=== PATIENT | female | born 1935 | race Two or more races ===

== ENCOUNTER → 2019-04-08 | Emergency (ER) | payer OTHER ==
[~2019-04-08] MED LIST: SODIUM BICARBONATE 8.4% INJ 50ML SYRINGE ONE
== END | disposition left against medical advice (07) ==
LOC: EDBD 11:51 → ER 11:51
DX: R07.89 Other chest pain (principal); R06.02 Shortness of breath; Z53.21 Procedure and treatment not carried out due to patient leaving prior to being seen by health care provider

== ENCOUNTER 2020-01-14 15:22 | Inpatient (IN) | payer MEDICARE, MEDICAID ==
[~2020-01-14] VITALS: Ht 165.1 cm; Wt 86.5 kg
[2020-01-14] MEDS: InsuLIN REG 1unit/0.01ml Soln (100units/ml) SC SCH (00:48)
[2020-01-14 16:56] LABS: Basophils # (auto) 0.1 10 ^3/uL (0-0.2); Basophils % (auto) 1.7 % (0.0-2.0); Eosinophils # (auto) 0.1 10 ^3/uL (0-0.8); Eosinophils % (auto) 2.9 % (0.0-7.0); Hematocrit 34.9 % (36.0-46.0); Hemoglobin 11.3 g/dL (12.2-16.2); Lymphocytes # (auto) 0.7 10 ^3/uL (0.4-5.4); Lymphocytes % (auto) 14.7 % (10.0-50.0); Mean Corpuscular Hemoglobin 27.8 pg (28.0-32.0); Mean Corpuscular Hgb Conc. 32.3 g/dL (32.0-36.0); Mean Corpuscular Volume 86.2 fL (80.0-100.0); Monocytes # (auto) 0.5 10 ^3/uL (0-1.3); Neutrophils # (auto) 3.2 10 ^3/uL (1.6-8.6); Neutrophils % (auto) 70.7 % (37.0-80.0); Nucleated Red Blood Cells % 0.2 %; Platelet Count (auto) 213 10^3/uL (140-450); Red Blood Cells 4.05 10^6/uL (4.0-5.20); Red Cell Distribution Width 15.2 % (11.8-14.3); White Blood Cell 4.6 10^3/uL (4.4-10.8)
[2020-01-14 17:12] LABS: Calcium 8.5 mg/dL (8.5-10.1); Magnesium 2.2 mg/dL (1.6-2.6); Potassium 4.8 mmol/L (3.5-5.1)
[2020-01-14] MEDS ORDERED: FUROSEMIDE 40 MG/4 ML VIAL IV ONE ×2 (17:15→19:15)
[2020-01-14 17:18] LABS: BUN/Creatinine Ratio 22.5; Bilirubin, Total 0.9 mg/dL (0.2-1.0); Total Protein 7.1 g/dL (6.4-8.2)
[2020-01-14] MEDS ORDERED: HYDROcodone-ACET 5/325MG TAB PO PRN (19:15)
[2020-01-14] MEDS ORDERED: INFLUENZA QUAD 2020-2021 0.5 ML SYRG IM ONE (19:15)
[2020-01-14] MEDS ORDERED: LORazepam 0.5 MG TAB PO PRN (19:15)
[2020-01-14] MEDS ORDERED: ONDANSETRON HCL 4 MG/2 ML VIAL IV PRN (19:15)
[2020-01-14] MEDS: SODIUM CHLORIDE 0.9% 1,000 ML IV SCH (19:15)
[2020-01-14] MEDS ORDERED: MORPHINE SULF INJ 2 MG/ML SYRINGE 1ML IV PRN ×3 (19:15)
[2020-01-14] MEDS ORDERED: NITROGLYCERIN 0.4 MG SL TAB SL PRN ×3 (19:15)
[2020-01-14] MEDS ORDERED: DEXTROSE (50%) 50ML SYRG IV PRN (19:15)
[2020-01-14] MEDS ORDERED: PNEUMOCOCCAL VACC POLYS 25 MCG/0.5 ML VIAL IM ONE (19:15)
[2020-01-14] MEDS ORDERED: hydrALAZINE HCL 20 MG/ML VL IV PRN (19:30)
[2020-01-14] MEDS ORDERED: METOPROLOL SUCCINATE XL 50 MG TAB PO ONE (19:30)
[2020-01-14] MEDS: METOPROLOL TARTRATE 25 MG TAB PO SCH (22:00)
[2020-01-15] VITALS (7 sets, daily range): BP systolic 115–144; BP diastolic 56–83
[2020-01-15] MEDS: ATORVASTATIN 20 MG TAB PO SCH ×2 (00:35→22:00)
[2020-01-15] MEDS ORDERED: AZITHROMYCIN 500MG/ 250ML 250 ML IV ONE (01:45)
[2020-01-15] MEDS ORDERED: cefTRIAXone 1GM/50ML D5W 50 ML IV ONE (01:45)
[2020-01-15] MEDS: ACCU-CHEK COMFORT CURVE STRIP VI SCH ×5 (02:16→22:00)
[2020-01-15] MEDS: ACETAMINOPHEN 325 MG TAB PO PRN ×2 (02:40→19:48)
[2020-01-15] MEDS: FUROSEMIDE 20 MG/2 ML VIAL IV SCH ×2 (06:44→18:06)
[2020-01-15] MEDS: LEVOTHYROXINE SODIUM 25 MCG TAB PO SCH (07:00)
[2020-01-15] MEDS: InsuLIN REG 1unit/0.01ml Soln (100units/ml) SC SCH ×4 (07:02→22:00)
[2020-01-15] MEDS: DOCUSATE SOD 100 MG CAP PO SCH (10:33)
[2020-01-15] MEDS: LISINOPRIL 5 MG TAB PO SCH (10:33)
[2020-01-15] MEDS: APIXABAN 2.5 MG TAB PO SCH ×2 (10:33→22:00)
[2020-01-15] MEDS: ASPirin 81 mg TAB PO SCH (10:35)
[2020-01-15] MEDS: FAMOTIDINE (10MG/ML) 2ML VL IV SCH ×2 (10:38→22:00)
[2020-01-15] MEDS: METOPROLOL TARTRATE 25 MG TAB PO SCH ×2 (10:47→22:00)
[2020-01-15 13:56] LABS: INR 1.15 (0.9-1.15); Partial Thromboplastin Time 29.8 sec (23.0-31.2)
[2020-01-15] MEDS: SODIUM CHLORIDE 0.9% 1,000 ML IV SCH (19:00)
[2020-01-15 20:04] LABS: Urine Bacteria FEW /hpf (None Seen); Urine Blood TRACE /uL (Negative); Urine Specific Gravity 1.013 (1.001-1.035); Urine WBC 4 /hpf (0 - 5)
[2020-01-15 20:29] LABS: Amphetamine Screen, Urine NEGATIVE (NEGATIVE); Barbiturate Scree,Urine NEGATIVE (NEGATIVE); Benzodiazephine Screen, Urine NEGATIVE (NEGATIVE); Cannabinoid Screen, Urine NEGATIVE (NEGATIVE); Cocaine Screen, Urine NEGATIVE (NEGATIVE); Opiate Scree,Urine NEGATIVE (NEGATIVE); Phencyclidine Screen, Urine NEGATIVE (NEGATIVE)
[2020-01-15 20:41] LABS: Alcohol, Urine < 3.0 mg/dL (0-10)
[2020-01-15] MEDS: QUEtiapine FUMARATE 25 MG TAB PO SCH (22:00)
[2020-01-15] MEDS ORDERED: LORazepam 2MG/ML-1ML VIAL IV PRN (22:45)
[2020-01-16] MEDS: LEVOTHYROXINE SODIUM 25 MCG TAB PO SCH (06:44)
[2020-01-16] MEDS: FUROSEMIDE 20 MG/2 ML VIAL IV SCH ×2 (06:52→17:51)
[2020-01-16] MEDS: ACCU-CHEK COMFORT CURVE STRIP VI SCH ×4 (06:57→22:13)
[2020-01-16] MEDS: InsuLIN REG 1unit/0.01ml Soln (100units/ml) SC SCH ×4 (06:57→22:12)
[2020-01-16 08:30] VITALS: BP 147/78
[2020-01-16] MEDS: cefTRIAXone 1GM/50ML D5W 50 ML IV SCH (08:32)
[2020-01-16 09:00] VITALS: BP 147/78
[2020-01-16] MEDS: DOCUSATE SOD 100 MG CAP PO SCH (09:48)
[2020-01-16] MEDS: LISINOPRIL 5 MG TAB PO SCH (09:48)
[2020-01-16] MEDS: ASPirin 81 mg TAB PO SCH (09:48)
[2020-01-16] MEDS: APIXABAN 2.5 MG TAB PO SCH (09:48)
[2020-01-16] MEDS: FAMOTIDINE (10MG/ML) 2ML VL IV SCH ×2 (09:49→21:28)
[2020-01-16] MEDS: METOPROLOL TARTRATE 25 MG TAB PO SCH ×3 (09:49→22:34)
[2020-01-16] MEDS: AZITHROMYCIN 500MG/ 250ML 250 ML IV SCH (09:49)
[2020-01-16 13:00] VITALS: BP 130/63
[2020-01-16 17:00] VITALS: BP 119/83
[2020-01-16] MEDS: SODIUM CHLORIDE 0.9% 1,000 ML IV SCH (19:15)
[2020-01-16] MEDS: ATORVASTATIN 20 MG TAB PO SCH (21:28)
[2020-01-16] MEDS: QUEtiapine FUMARATE 25 MG TAB PO SCH (21:30)
[2020-01-16 22:00] VITALS: BP 146/88
[2020-01-17] VITALS (7 sets, daily range): BP systolic 119–150; BP diastolic 63–79
[2020-01-17] MEDS: FUROSEMIDE 20 MG/2 ML VIAL IV SCH ×2 (05:42→17:29)
[2020-01-17] MEDS: InsuLIN REG 1unit/0.01ml Soln (100units/ml) SC SCH ×4 (06:01→22:00)
[2020-01-17] MEDS: LEVOTHYROXINE SODIUM 25 MCG TAB PO SCH (06:01)
[2020-01-17] MEDS: ACCU-CHEK COMFORT CURVE STRIP VI SCH ×4 (06:02→22:08)
[2020-01-17] MEDS: cefTRIAXone 1GM/50ML D5W 50 ML IV SCH (08:17)
[2020-01-17] MEDS: FAMOTIDINE (10MG/ML) 2ML VL IV SCH ×2 (10:17→21:16)
[2020-01-17] MEDS: AZITHROMYCIN 500MG/ 250ML 250 ML IV SCH (10:17)
[2020-01-17] MEDS: LISINOPRIL 5 MG TAB PO SCH (10:22)
[2020-01-17] MEDS: DOCUSATE SOD 100 MG CAP PO SCH (10:22)
[2020-01-17] MEDS: ASPirin 81 mg TAB PO SCH (10:22)
[2020-01-17] MEDS ORDERED: SPIRONOLACTONE 25 MG TAB PO ONE (11:45)
[2020-01-17] MEDS: ATORVASTATIN 20 MG TAB PO SCH (21:18)
[2020-01-17] MEDS: QUEtiapine FUMARATE 25 MG TAB PO SCH (21:19)
[2020-01-17] MEDS: METOPROLOL TARTRATE 25 MG TAB PO SCH (21:19)
[2020-01-17] MEDS ORDERED: HALOPERIDOL LACTATE 5 MG/ML INJ VIAL IM PRN (21:30)
[2020-01-18 04:36] VITALS: BP 108/57
[2020-01-18] MEDS: FUROSEMIDE 20 MG/2 ML VIAL IV SCH ×2 (05:35→18:23)
[2020-01-18] MEDS: LEVOTHYROXINE SODIUM 25 MCG TAB PO SCH (06:05)
[2020-01-18] MEDS: ACCU-CHEK COMFORT CURVE STRIP VI SCH ×4 (06:06→21:56)
[2020-01-18] MEDS: InsuLIN REG 1unit/0.01ml Soln (100units/ml) SC SCH ×4 (06:06→22:36)
[2020-01-18 08:00] VITALS: BP 133/68
[2020-01-18 08:06] VITALS: BP 133/68
[2020-01-18] MEDS: cefTRIAXone 1GM/50ML D5W 50 ML IV SCH (09:27)
[2020-01-18] MEDS: FAMOTIDINE (10MG/ML) 2ML VL IV SCH ×2 (09:27→21:56)
[2020-01-18] MEDS: DOCUSATE SOD 100 MG CAP PO SCH (09:28)
[2020-01-18] MEDS: METOPROLOL TARTRATE 25 MG TAB PO SCH ×2 (09:28→22:00)
[2020-01-18] MEDS: SPIRONOLACTONE 25 MG TAB PO SCH (09:29)
[2020-01-18] MEDS: AZITHROMYCIN 500MG/ 250ML 250 ML IV SCH (10:42)
[2020-01-18 12:00] VITALS: BP 133/56
[2020-01-18 17:00] VITALS: BP 147/89
[2020-01-18] MEDS: QUEtiapine FUMARATE 25 MG TAB PO SCH (21:55)
[2020-01-18] MEDS: SACUBITRIL-VALSARTAN 24mg/26mg TAB PO SCH (21:55)
[2020-01-18] MEDS: ATORVASTATIN 20 MG TAB PO SCH (21:55)
[2020-01-18 22:00] VITALS: BP 149/92
[2020-01-19 05:00] VITALS: BP 116/55
[2020-01-19] MEDS: FUROSEMIDE 20 MG/2 ML VIAL IV SCH ×2 (05:49→18:31)
[2020-01-19] MEDS: LEVOTHYROXINE SODIUM 25 MCG TAB PO SCH ×2 (05:49→06:03)
[2020-01-19] MEDS: ACCU-CHEK COMFORT CURVE STRIP VI SCH ×4 (05:49→22:00)
[2020-01-19] MEDS: InsuLIN REG 1unit/0.01ml Soln (100units/ml) SC SCH ×4 (06:03→22:00)
[2020-01-19] MEDS: FAMOTIDINE (10MG/ML) 2ML VL IV SCH ×2 (09:52→23:52)
[2020-01-19] MEDS: cefTRIAXone 1GM/50ML D5W 50 ML IV SCH (09:52)
[2020-01-19] MEDS: SPIRONOLACTONE 25 MG TAB PO SCH (09:53)
[2020-01-19] MEDS: DOCUSATE SOD 100 MG CAP PO SCH (09:53)
[2020-01-19] MEDS: METOPROLOL TARTRATE 25 MG TAB PO SCH ×2 (09:53→23:53)
[2020-01-19] MEDS: SACUBITRIL-VALSARTAN 24mg/26mg TAB PO SCH ×2 (09:53→23:52)
[2020-01-19 09:56] VITALS: BP 154/77
[2020-01-19] MEDS: AZITHROMYCIN 500MG/ 250ML 250 ML IV SCH (13:03)
[2020-01-19] MEDS: LORazepam 2MG/ML-1ML VIAL IV PRN (14:03)
[2020-01-19 20:00] VITALS: BP 154/77
[2020-01-19] MEDS: ATORVASTATIN 20 MG TAB PO SCH (23:52)
[2020-01-19] MEDS: QUEtiapine FUMARATE 25 MG TAB PO SCH (23:54)
[2020-01-20] VITALS (7 sets, daily range): BP systolic 105–154; BP diastolic 48–90
[2020-01-20] MEDS: FUROSEMIDE 20 MG/2 ML VIAL IV SCH ×2 (06:00→18:09)
[2020-01-20] MEDS: LEVOTHYROXINE SODIUM 25 MCG TAB PO SCH (06:34)
[2020-01-20] MEDS: ACCU-CHEK COMFORT CURVE STRIP VI SCH ×4 (07:03→22:00)
[2020-01-20] MEDS: InsuLIN REG 1unit/0.01ml Soln (100units/ml) SC SCH ×5 (07:03→23:16)
[2020-01-20] MEDS: cefTRIAXone 1GM/50ML D5W 50 ML IV SCH (08:56)
[2020-01-20] MEDS: AZITHROMYCIN 500MG/ 250ML 250 ML IV SCH (10:17)
[2020-01-20] MEDS: FAMOTIDINE (10MG/ML) 2ML VL IV SCH ×2 (10:17→22:39)
[2020-01-20] MEDS: SPIRONOLACTONE 25 MG TAB PO SCH (10:18)
[2020-01-20] MEDS: DOCUSATE SOD 100 MG CAP PO SCH (10:18)
[2020-01-20] MEDS: SACUBITRIL-VALSARTAN 24mg/26mg TAB PO SCH ×2 (10:19→22:40)
[2020-01-20] MEDS: METOPROLOL TARTRATE 25 MG TAB PO SCH ×2 (10:20→22:42)
[2020-01-20] MEDS: ATORVASTATIN 20 MG TAB PO SCH (22:40)
[2020-01-20] MEDS: APIXABAN 2.5 MG TAB PO SCH (22:40)
[2020-01-20] MEDS: QUEtiapine FUMARATE 25 MG TAB PO SCH (22:40)
[2020-01-21 05:00] VITALS: BP 155/72
[2020-01-21 05:24] LABS: Hemoglobin 11.1 g/dL (12.2-16.2); Mean Corpuscular Hemoglobin 27.4 pg (28.0-32.0); White Blood Cell 3.6 10^3/uL (4.4-10.8)
[2020-01-21 05:33] LABS: Hematocrit 33.7 % (36.0-46.0); Mean Corpuscular Hgb Conc. 32.8 g/dL (32.0-36.0); Mean Corpuscular Volume 83.6 fL (80.0-100.0); Platelet Count (auto) 165 10^3/uL (140-450); Red Blood Cells 4.03 10^6/uL (4.0-5.20)
[2020-01-21 05:37] LABS: Basophils % (manual) 0 (0.0-2.0); Blast Cells 0; Eosinophils % (manual) 0 (0-7); Metamyelocytes % 0; Myelocytes % 0; Promyelocytes % 0; Reactive Lymphocytes 0
[2020-01-21 05:39] LABS: Albumin 2.4 g/dL (3.4-5.0); Calcium 8.1 mg/dL (8.5-10.1); Potassium 4.2 mmol/L (3.5-5.1)
[2020-01-21 05:44] LABS: BUN/Creatinine Ratio 22.6; Bilirubin, Total 0.7 mg/dL (0.2-1.0); Total Protein 6.1 g/dL (6.4-8.2)
[2020-01-21] MEDS: ACCU-CHEK COMFORT CURVE STRIP VI SCH ×4 (06:16→21:03)
[2020-01-21] MEDS: InsuLIN REG 1unit/0.01ml Soln (100units/ml) SC SCH ×4 (06:20→21:03)
[2020-01-21] MEDS: LEVOTHYROXINE SODIUM 25 MCG TAB PO SCH (06:28)
[2020-01-21] MEDS: FUROSEMIDE 20 MG/2 ML VIAL IV SCH ×2 (06:33→18:52)
[2020-01-21 06:42] LABS: Band Neutrophils % (manual) 6; Lymphocytes % (manual) 17 (10.0-50.0); Monocytes % (manual) 17 (0-12)
[2020-01-21 09:00] VITALS: BP 148/71
[2020-01-21] MEDS: cefTRIAXone 1GM/50ML D5W 50 ML IV SCH (10:36)
[2020-01-21] MEDS: SPIRONOLACTONE 25 MG TAB PO SCH (11:00)
[2020-01-21] MEDS: DOCUSATE SOD 100 MG CAP PO SCH (11:00)
[2020-01-21] MEDS: QUEtiapine FUMARATE 25 MG TAB PO SCH ×2 (11:00→20:55)
[2020-01-21] MEDS: SACUBITRIL-VALSARTAN 24mg/26mg TAB PO SCH ×2 (11:00→20:54)
[2020-01-21] MEDS: APIXABAN 2.5 MG TAB PO SCH ×2 (11:01→20:56)
[2020-01-21] MEDS: METOPROLOL TARTRATE 25 MG TAB PO SCH ×2 (11:01→20:55)
[2020-01-21] MEDS: FAMOTIDINE (10MG/ML) 2ML VL IV SCH ×2 (11:02→20:56)
[2020-01-21] MEDS ORDERED: AZITHROMYCIN 250 MG TAB PO ONE (11:30)
[2020-01-21 13:00] VITALS: BP 103/73
[2020-01-21 17:00] VITALS: BP 131/68
[2020-01-21] MEDS: LORazepam 2MG/ML-1ML VIAL IV PRN (17:11)
[2020-01-21] MEDS: ATORVASTATIN 20 MG TAB PO SCH (20:55)
[2020-01-21 21:50] VITALS: BP 134/63
[2020-01-22] MEDS ORDERED: LORazepam 2MG/ML-1ML VIAL ONE (01:03)
[2020-01-22] MEDS: ACETAMINOPHEN 325 MG TAB PO PRN ×2 (01:30→16:42)
[2020-01-22 05:03] VITALS: BP 132/56
[2020-01-22] MEDS: FUROSEMIDE 20 MG/2 ML VIAL IV SCH ×2 (05:54→19:00)
[2020-01-22] MEDS: ACCU-CHEK COMFORT CURVE STRIP VI SCH ×4 (06:00→21:38)
[2020-01-22] MEDS: InsuLIN REG 1unit/0.01ml Soln (100units/ml) SC SCH ×4 (06:00→21:42)
[2020-01-22] MEDS: LEVOTHYROXINE SODIUM 25 MCG TAB PO SCH (06:38)
[2020-01-22 09:15] VITALS: BP 133/61
[2020-01-22] MEDS: QUEtiapine FUMARATE 25 MG TAB PO SCH ×2 (10:22→21:52)
[2020-01-22] MEDS: APIXABAN 2.5 MG TAB PO SCH ×2 (10:22→21:52)
[2020-01-22] MEDS: METOPROLOL TARTRATE 25 MG TAB PO SCH ×2 (10:22→21:52)
[2020-01-22] MEDS: SPIRONOLACTONE 25 MG TAB PO SCH (10:22)
[2020-01-22] MEDS: FAMOTIDINE (10MG/ML) 2ML VL IV SCH ×2 (10:22→21:38)
[2020-01-22] MEDS: AZITHROMYCIN 250 MG TAB PO SCH (10:22)
[2020-01-22] MEDS: cefTRIAXone 1GM/50ML D5W 50 ML IV SCH (10:22)
[2020-01-22] MEDS: SACUBITRIL-VALSARTAN 24mg/26mg TAB PO SCH ×2 (10:22→21:51)
[2020-01-22] MEDS: DOCUSATE SOD 100 MG CAP PO SCH (10:22)
[2020-01-22 12:18] LABS: Hematocrit 34.5 % (36.0-46.0); Hemoglobin 11.3 g/dL (12.2-16.2); Mean Corpuscular Hemoglobin 27.5 pg (28.0-32.0); Mean Corpuscular Hgb Conc. 32.8 g/dL (32.0-36.0); Platelet Count (auto) 177 10^3/uL (140-450); Red Cell Distribution Width 15.1 % (11.8-14.3); White Blood Cell 3.4 10^3/uL (4.4-10.8)
[2020-01-22 12:21] LABS: Blast Cells 0; Metamyelocytes % 0; Myelocytes % 0; Promyelocytes % 0; Reactive Lymphocytes 0
[2020-01-22 12:34] LABS: Albumin 2.4 g/dL (3.4-5.0); Calcium 8.2 mg/dL (8.5-10.1); Potassium 4.4 mmol/L (3.5-5.1)
[2020-01-22 12:37] LABS: Bilirubin, Total 0.8 mg/dL (0.2-1.0); Phosphorus 2.6 mg/dL (2.5-4.90); Total Protein 6.2 g/dL (6.4-8.2)
[2020-01-22 12:49] LABS: Band Neutrophils % (manual) 2; Basophils % (manual) 2 (0.0-2.0); Eosinophils % (manual) 3 (0-7); Lymphocytes % (manual) 13 (10.0-50.0); Monocytes % (manual) 16 (0-12)
[2020-01-22 17:00] VITALS: BP 146/58
[2020-01-22 20:00] VITALS: BP 125/66
[2020-01-22] MEDS ORDERED: InsuLIN REG 1unit/0.01ml Soln (100units/ml) ONE (20:53)
[2020-01-22] MEDS: ATORVASTATIN 20 MG TAB PO SCH (21:51)
[2020-01-22 22:00] VITALS: BP 125/66
[2020-01-23] MEDS: ACETAMINOPHEN 325 MG TAB PO PRN ×2 (04:19→11:49)
[2020-01-23 05:00] VITALS: BP 115/74
[2020-01-23] MEDS: FUROSEMIDE 20 MG/2 ML VIAL IV SCH (05:58)
[2020-01-23] MEDS: LEVOTHYROXINE SODIUM 25 MCG TAB PO SCH (06:05)
[2020-01-23] MEDS: InsuLIN REG 1unit/0.01ml Soln (100units/ml) SC SCH ×3 (06:05→12:05)
[2020-01-23] MEDS: ACCU-CHEK COMFORT CURVE STRIP VI SCH ×2 (06:05→11:51)
[2020-01-23 09:00] VITALS: BP 141/65
[2020-01-23] MEDS: cefTRIAXone 1GM/50ML D5W 50 ML IV SCH (09:00)
[2020-01-23] MEDS: DOCUSATE SOD 100 MG CAP PO SCH (10:00)
[2020-01-23] MEDS: SPIRONOLACTONE 25 MG TAB PO SCH (10:00)
[2020-01-23] MEDS: FAMOTIDINE (10MG/ML) 2ML VL IV SCH (10:00)
[2020-01-23] MEDS: SACUBITRIL-VALSARTAN 24mg/26mg TAB PO SCH (11:49)
[2020-01-23] MEDS: APIXABAN 2.5 MG TAB PO SCH (11:49)
[2020-01-23] MEDS: QUEtiapine FUMARATE 25 MG TAB PO SCH (11:49)
[2020-01-23] MEDS: AZITHROMYCIN 250 MG TAB PO SCH (11:49)
[2020-01-23] MEDS: METOPROLOL TARTRATE 25 MG TAB PO SCH (11:50)
[2020-01-23 12:40] VITALS: BP 141/65
[2020-01-23 13:00] VITALS: BP 153/83
== END 2020-01-23 14:50 | disposition home health service (06) | DRG 291 ==
LOC: ER 15:22 → EDBD 15:22 → TELE 19:14 → TELE-WESTW 01-15 01:00 → UNDODISIN 01-18 17:09
PROVIDERS: ADMIT Hospitalist; ATTEND Internal Medicine
PROC: 0W993ZZ Drainage of Right Pleural Cavity, Percutaneous Approach (ICD-10-PCS; principal; 2020-01-17)
DX: I13.0 Hypertensive heart and chronic kidney disease with heart failure and stage 1 through stage 4 chronic kidney disease, or unspecified chronic kidney disease (principal); J18.9 Pneumonia, unspecified organism; I50.43 Acute on chronic combined systolic (congestive) and diastolic (congestive) heart failure; G93.41 Metabolic encephalopathy; N17.9 Acute kidney failure, unspecified; D68.4 Acquired coagulation factor deficiency; I48.20 Chronic atrial fibrillation, unspecified; N39.0 Urinary tract infection, site not specified; J91.8 Pleural effusion in other conditions classified elsewhere; Z20.828 Contact with and (suspected) exposure to other viral communicable diseases; E11.40 Type 2 diabetes mellitus with diabetic neuropathy, unspecified; E03.9 Hypothyroidism, unspecified; E78.5 Hyperlipidemia, unspecified; E66.9 Obesity, unspecified; Z91.19 Patient's noncompliance with other medical treatment and regimen; D64.9 Anemia, unspecified; N18.30 Chronic kidney disease, stage 3 unspecified; Z28.21 Immunization not carried out because of patient refusal; E11.22 Type 2 diabetes mellitus with diabetic chronic kidney disease; F02.80 Dementia in other diseases classified elsewhere, unspecified severity, without behavioral disturbance, psychotic disturbance, mood disturbance, and anxiety; F32.9 Major depressive disorder, single episode, unspecified; G30.9 Alzheimer's disease, unspecified; I25.10 Atherosclerotic heart disease of native coronary artery without angina pectoris; K21.9 Gastro-esophageal reflux disease without esophagitis; E78.00 Pure hypercholesterolemia, unspecified; K29.70 Gastritis, unspecified, without bleeding; Z79.01 Long term (current) use of anticoagulants; Z79.4 Long term (current) use of insulin; Z79.899 Other long term (current) drug therapy; Z83.3 Family history of diabetes mellitus; Z86.73 Personal history of transient ischemic attack (TIA), and cerebral infarction without residual deficits; Z87.442 Personal history of urinary calculi; Z90.710 Acquired absence of both cervix and uterus; Z68.31 Body mass index [BMI] 31.0-31.9, adult; Z90.49 Acquired absence of other specified parts of digestive tract; Z82.49 Family history of ischemic heart disease and other diseases of the circulatory system; Z81.8 Family history of other mental and behavioral disorders; Z80.9 Family history of malignant neoplasm, unspecified
CPT/HCPCS: 10022; 36415; 36600; 70450; 71045; 76604; 76942; 80053; 80307; 81001; 82805; 82962; 83036; 83735; 83880; 83986; 84100; 84484; 85007; 85025; 85027; 85379; 85610; 85730; 87040; 87086; 87205; 89051; 93306; 97110; 97116; 97163; 97530; 99291; G0378; J0696; J1815; J2405; J3490